=== PATIENT | female | born 1975 | race Caucasian/White ===

== ENCOUNTER 2024-12-31 07:49 | Emergency (ER) | payer OTHER ==
[~2024-12-31] VITALS: Ht 170.2 cm; Wt 95.0 kg
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
[2024-12-31] MEDS: TETANUS-DIPTH-ACEL PERTUSSIS 0.5ML SYR Tdap IM ONE (08:30)
[2024-12-31 08:35] VITALS: BP 113/68; PULSE 72; RESP 16; TEMP 98.1; O2SAT 98
--- NOTE | 2024-12-31 08:46 | DVH ---
CLINICAL INDICATION: dog bite TECHNIQUE: XY R HAND 3 VIEW XRAY Comparison: None FINDINGS/IMPRESSION: : There is no evidence of acute fracture or dislocation. Soft tissues are unremarkable. No radiopaque foreign body.
[2024-12-31] MEDS ORDERED: BACDST PO (08:55)
== END 2024-12-31 08:59 | disposition home or self-care (01) ==
LOC: ER 07:49
DX: S61.411A Laceration without foreign body of right hand, initial encounter (principal); L23.81 Allergic contact dermatitis due to animal (cat) (dog) dander; F10.90 Alcohol use, unspecified, uncomplicated; Z88.5 Allergy status to narcotic agent; Z88.1 Allergy status to other antibiotic agents; W54.0XXA Bitten by dog, initial encounter; Y93.89 Activity, other specified; Y92.89 Other specified places as the place of occurrence of the external cause; Y99.8 Other external cause status; Y90.9 Presence of alcohol in blood, level not specified
CPT/HCPCS: 73130; 90471; 90715

== ENCOUNTER 2024-12-31 20:03 | Emergency (ER) | payer OTHER ==
[~2024-12-31 20:03] MED LIST: BACDST PO
== END 2024-12-31 20:04 | disposition left against medical advice (07) ==
LOC: ER 20:03
DX: R25.1 Tremor, unspecified (principal); Z53.21 Procedure and treatment not carried out due to patient leaving prior to being seen by health care provider